=== PATIENT | female | born 1995 | race Two or more races ===

== ENCOUNTER 2020-06-17 19:03 | Emergency (ER) | payer BC ==
--- NOTE | 2020-06-17 19:43 | EDM.PDOC ---
ED HPI GENERAL MEDICAL PROBLEM - General Chief Complaint: Back Pain or Injury Stated Complaint: BACK PAIN Time Seen by Provider: 06/17/20 19:32 Source of Information: Reports: Patient, RN Notes Reviewed History Limitations: Reports: No Limitations - History of Present Illness INITIAL COMMENTS - FREE TEXT/NARRATIVE: Patient is a 24-year-old female who presents to the ED for her back pain. Patient notes that this started Tuesday, it got better last few days however worsened again this morning. She did take 400 mg ibuprofen this a.m. for pain management and this helped a little bit but did not really take the pain away. 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 She denies any numbness or tingling into her toes or radiation to her leg. She notes that this is in her left lower lumbar area. She denies any trauma, near slips trips or falls. She has not had pain like this before ever. She notes that the pain is constant, seems to worsen with flexing type movements, and gets better when she is not laying on the affected side and just not moving at all. She denies any loss of bowel or bladder control or saddle anesthesia components. She denies any fevers or chills, cough shortness of breath, nausea/vomiting/diarrhea. Patient notes that the pain is very sharp and stabbing in nature. She further denies any dysuria, frequency or urgency. Lower Back Pain Score (Numeric/FACES): 9 - Related Data Allergies Allergy/AdvReac Type Severity Reaction Status Date / Time No Known Allergies Allergy Verified 06/17/20 19:35 Home Meds: Home Meds Acetaminophen/HYDROcodone [[place] 325-5 MG] 1 tab PO Q6H PRN #6 tablet 06/17/20 [Rx] Naproxen [Naprosyn] 500 mg PO Q12HR #20 tab 06/17/20 [Rx] Orphenadrine [Norflex] 100 mg PO BID PRN #20 tab 06/17/20 [Rx] ED ROS GENERAL - Review of Systems Review Of Systems: Comprehensive ROS is negative, except as noted in HPI. ED EXAM,LOWER BACK PAIN/INJURY - Physical Exam Exam: See Below Exam Limited By: No Limitations General Appearance: Alert, WD/WN, No Apparent Distress Respiratory/Chest: No Respiratory Distress, Lungs Clear, Normal Breath Sounds, No Accessory Muscle Use, Chest Non-Tender Cardiovascular: Normal Peripheral Pulses, Regular Rate, Rhythm, No Edema Back Exam: Normal Inspection, Decreased Range of Motion (d/t pain in left lower back) Extremities: Normal Inspection, Normal Capillary Refill Neurological: Alert, Normal Mood/Affect, Normal Dorsiflexion, Normal Plantar Flexion, Normal Reflexes, No Motor/Sensory Deficits. No: Straight Leg Raise (L), Straight Leg Raise (R), Saddle Anesthesia Psychiatric: Normal Affect, Normal Mood Skin Exam: Warm, Dry, Intact, Normal Color, No Rash Course - Vital Signs Last Recorded V/S: Last Vital Signs Temp 98.6 F 06/17/20 19:29 Pulse 91 06/17/20 19:29 Resp 20 06/17/20 19:29 BP 127/71 06/17/20 19:29 Pulse Ox 99 06/17/20 19:29 - Orders/Labs/Meds Meds: Medications Discontinued Medications Generic Name Dose Route Start Last Admin Trade Name Ann-Marie PRN Reason Stop Dose Admin Ketorolac Tromethamine 60 mg 06/17/20 19:39 06/17/20 19:45 Ketorolac 60 Mg/2 Ml Sdv IM 06/17/20 19:40 60 mg ONETIME ONE Administration Orphenadrine Citrate 100 mg 06/17/20 19:39 06/17/20 19:45 Orphenadrine 100 Mg Tab.Er PO 06/17/20 19:40 100 mg ONETIME ONE Administration - Re-Assessments/Exams Free Text/Narrative Re-Assessment/Exam: 06/17/20 19:42 Patient presents to the ED for her lower back pain, we will go ahead and try an IM injection of Toradol and try 100 mg p.o. Norflex for initial management. Highly suspect musculoskeletal etiology. 06/17/20 20:18 I was back in to reassess the patient, she states that her pain went from a 10 out of 10 to a 6 out of 10. She does state that she lives in [facility], and was wondering about the possibility of an x-ray to make sure nothing was wrong. I did explain to her that the likelihood of some sort of fracture or other bony abnormality is very low, we will not see any sort of major muscle or soft tissue injury on x-ray, nonetheless she is requesting an x-ray to be performed we will go ahead and order lumbar x-rays for evaluation. Plan is to send her home with some Naprosyn and Norflex, and just a few tablets of [place] for nighttime pain management if the Naprosyn does not work. 06/17/20 20:40 Lumbar spine films have been performed, and demonstrate no focal abnormalities, reviewed by myself and Dr. Amaro. Official radiology read is still pending. 06/17/20 20:53 Official x-ray read demonstrates no abnormality appreciated on the three-view lumbar spine study. I will give the patient 0.5 mg IM injection of Dilaudid for pain management for tonight's purposes as she has to go home to kill there. She notes that she has a ride. Departure - Departure Time of Disposition: 20:54 Disposition: Home, Self-Care 01 Condition: Good Clinical Impression: Low back pain Qualifiers: Chronicity: acute Back pain laterality: left Sciatica presence: without sciatica Qualified Code(s): M54.5 - Low back pain - Discharge Information *PRESCRIPTION DRUG MONITORING PROGRAM REVIEWED*: Yes *COPY OF PRESCRIPTION DRUG MONITORING REPORT IN PATIENT MICHAEL: No Prescriptions: Naproxen [Naprosyn] 500 mg PO Q12HR #20 tab Acetaminophen/HYDROcodone [[place] 325-5 MG] 1 tab PO Q6H PRN #6 tablet PRN Reason: Pain Orphenadrine [Norflex] 100 mg PO BID PRN #20 tab PRN Reason: Spasms Instructions: Back Injury Prevention, [id number], Muscle Strain, [id number] Referrals: PCP,None [Primary Care Provider] - Forms: ED Department Discharge, ED Return to Work/School Form Additional Instructions: You have been evaluated in the ED for your left lower back pain. Your x-ray demonstrated no acute fractures or other bony abnormalities. Please use ice/heat as tolerated to the affected area. You were given 3 different medications, one will be Naprosyn and anti- inflammatory only take 1 tablet 2 times a day for pain management. One medication is Norflex, a muscle relaxer, you will need to take 1 tablet 2 times a day as needed for further muscle spasms. The third medication is hydrocodone/acetaminophen 5/325 mg. This is to be taken if the Naprosyn is not working, for pain management at night, these medicines can be addictive, so please take as few of these as possible to obtain appropriate pain management. Do not drive while taking the hydrocodone and Norflex. The hydrocodone med ication can be somewhat constipating, if you need to take this medication I highly recommend you start taking a stool softener like MiraLAX, Dulcolax, Colace to help keep your bowels regular. Please return to ED if your symptoms should change or worsen. Sepsis Event Note (ED) - Evaluation Sepsis Screening Result: No Definite Risk - Focused Exam Vital Signs: Vital Signs Temp Pulse Resp BP Pulse Ox 06/17/20 19:29 98.6 F 91 20 127/71 99
[2020-06-17] MEDS: Ketorolac 60 MG/2 ML SDV IM ONE (19:45)
[2020-06-17] MEDS: Orphenadrine 100 MG Tab.ER PO ONE (19:45)
--- NOTE | 2020-06-17 20:47 | CR ---
Lumbar spine: AP, lateral and coned-down lateral view centered to the lumbosacral junction were obtained. Comparison: No prior lumbar spine imaging is available. Vertebral body heights and disc spaces are maintained. Pedicles as well as the visualized transverse and spinous processes are intact. No subluxation or fracture is appreciated. Sacroiliac joints are unremarkable. Impression: 1. No abnormality is appreciated on 3 view lumbar spine study. Diagnostic code #1
[2020-06-17] MEDS: HYDROmorphone 0.5 MG/0.5 ML Syringe IM ONE (21:13)
== END 2020-06-17 21:16 | disposition home or self-care (01) ==
LOC: JD.ED 19:03
DX: M54.5 Low back pain (principal)
CPT/HCPCS: 72100; 96372; 99283; A9270; J1170; J1885

== ENCOUNTER 2020-11-30 13:10 | Emergency (ER) | payer BC ==
[2020-11-30] MEDS ORDERED: Sodium Chloride 0.9% 10 ML Syringe FLUSH PRN (13:46)
[2020-11-30] MEDS ORDERED: cefTRIAXone 2 GM in Sodium Chloride 0.9% 100 ML IV ONE (13:46)
[2020-11-30] MEDS ORDERED: HYDROmorphone 1 MG/ML Syringe IVPUSH ONE (13:58)
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
[2020-11-30] MEDS ORDERED: Ondansetron 4 MG/2 ML SDV IVPUSH ONE (14:44)
--- NOTE | 2020-11-30 14:59 | CR ---
Left hand: 3 views portable left hand were obtained. Comparison: No prior hand study is available. No radiopaque foreign object is seen within the soft tissues. No soft tissue air is seen. No acute fracture, dislocation or other bony abnormality is appreciated. Impression: 1. Nothing acute is seen on 3 view left hand exam. Diagnostic code #1
== END 2020-11-30 15:40 | disposition home or self-care (01) ==
LOC: JD.ED 13:10
DX: S60.471A Other superficial bite of left index finger, initial encounter (principal); S60.473A Other superficial bite of left middle finger, initial encounter; S60.475A Other superficial bite of left ring finger, initial encounter; L03.012 Cellulitis of left finger; R60.0 Localized edema; Z86.16 Personal history of COVID-19; W50.3XXA Accidental bite by another person, initial encounter
CPT/HCPCS: 73130; 96365; 96375; 99284; J0696; J1170; J2405

== ENCOUNTER 2022-02-01 19:45 | Emergency (ER) | payer SELFPAY ==
[2022-02-01] MEDS ORDERED: Dexamethasone 10 MG/ML SDV IM ONE (22:23)
[2022-02-01] MEDS ORDERED: HYDROmorphone 1 MG/ML Syringe IM ONE (22:23)
== END 2022-02-01 23:15 | disposition home or self-care (01) ==
LOC: JD.ED 19:45
DX: R22.0 Localized swelling, mass and lump, head (principal); Z86.16 Personal history of COVID-19
CPT/HCPCS: 96372; 99283; J1100; J1170

== ENCOUNTER 2024-02-11 02:58 | Emergency (ER) | payer OTHER ==
[2024-02-11] MEDS ORDERED: Sodium Chloride 0.9% 10 ML Syringe FLUSH PRN (03:16)
[2024-02-11 03:23] LABS: APPEARANCE,URINE CLEAR (Clear); BILIRUBIN,URINE NEGATIVE (Negative); COLOR,URINE LIGHT YELLOW (Yellow); GLUCOSE,URINE NEGATIVE (Negative); KETONES,URINE NEGATIVE (Negative); LEUKOCYTE ESTERASE,URINE NEGATIVE (Negative); NITRITE,URINE NEGATIVE (Negative); OCCULT BLOOD,URINE 1+ (Negative); PH,URINE 6.5 (5.0-8.0); PROTEIN,URINE NEGATIVE (Negative); UROBILINOGEN,URINE 0.2 (0.2-1.0)
[2024-02-11 03:41] LABS: BASOPHILS ABSOLUTE AUTO 0.2 K/mm3 (0.0-0.2); BASOPHILS PERCENT AUTO 1.9 % (0.0-1.0); EOSINOPHILS ABSOLUTE AUTO 0.3 K/mm3 (0.0-0.4); EOSINOPHILS PERCENT AUTO 2.6 % (0.0-6.0); HEMATOCRIT 40.9 % (37.0-47.0); HEMOGLOBIN 13.9 gm/dl (12.0-16.0); IMMATURE GRAN ABSOLUTE AUTO 0.03 K/mm3 (0.00-0.05); IMMATURE GRAN PERCENT AUTO 0.2 % (0.0-0.4); LYMPHOCYTES ABSOLUTE AUTO 4.8 K/mm3 (1.0-4.8); LYMPHOCYTES PERCENT AUTO 39.6 % (24.0-44.0); MEAN CORPUSCULAR HEMOGLOBIN 29.9 pg (28.0-32.0); MEAN PLATELET VOLUME 9.8 fl (9.4-12.3); MONOCYTES ABSOLUTE AUTO 0.8 K/mm3 (0.0-0.8); NEUTROPHILS ABSOLUTE AUTO 5.9 K/mm3 (1.8-7.7); NEUTROPHILS PERCENT AUTO 48.7 % (41.0-71.0); PLATELET COUNT,PLT 428 K/mm3 (150-400); RED BLOOD CELL COUNT 4.65 M/mm3 (4.10-5.30); WHITE BLOOD CELL COUNT,WBC 12.05 K/mm3 (3.9-11.3)
[2024-02-11 04:07] LABS: A/G RATIO 0.8 (1-2); ANION GAP 18.3 (5-15); BILIRUBIN TOTAL 0.4 mg/dL (0.2-1.0); CALCIUM 8.9 mg/dL (8.5-10.1); CREATININE 0.6 mg/dL (0.55-1.02); EST CRCL DRUG DOSING (CG) 133.01 mL/min; POTASSIUM,K 3.3 mEq/L (3.5-5.1); PROTEIN TOTAL,TP 9.1 g/dl (6.4-8.2)
[2024-02-11 04:08] LABS: BACTERIA,URINE MODERATE /hpf (FEW); MUCUS,URINE NOT SEEN /hpf (FEW); SQUAMOUS EPITHELIAL CELLS,UR 0-5 /hpf (0-5); WBC,URINE 0-5 /hpf (0-5)
[2024-02-11 04:12] LABS: INR 1.03; PROTHROMBIN TIME 10.9 SECONDS (9.7-12.0)
[2024-02-11] MEDS: Iopamidol 612 MG/ML 100 ML Bottle IVPUSH ONE (04:15)
[2024-02-11 06:23] LABS: BARBITURATE SCREEN,URINE NEGATIVE (CUTOFF=200); BENZODIAZEPINES SCREEN,URINE NEGATIVE (CUTOFF=150); BUPRENORPHINE SCREEN,URINE NEGATIVE (CUTOFF=10); METHADONE SCREEN, URINE NEGATIVE (CUTOFF=200); METHAMPHETAMINES SCREEN, URINE NEGATIVE (CUTOFF=500); OXYCODONE SCREEN,URINE NEGATIVE (CUT0FF=100); THC SCREEN,URINE 20 NG/ML NEGATIVE (CUTOFF=50)
[2024-02-11 06:26] LABS: AMPHETAMINES SCREEN, URINE NEGATIVE (CUTOFF=500)
[2024-02-11] MEDS: Acetaminophen/oxyCODONE 325-5 MG Tab PO ONE (08:01)
== END 2024-02-11 08:18 | disposition home or self-care (01) ==
LOC: JD.ED 02:58
DX: S02.2XXA Fracture of nasal bones, initial encounter for closed fracture (principal); V89.2XXA Person injured in unspecified motor-vehicle accident, traffic, initial encounter
CPT/HCPCS: 12011; 36415; 70450; 70486; 71260; 72125; 72128; 72131; 74177; 80053; 80306; 80307; 81001; 83690; 84484; 84703; 85025; 85610; 85730; 86850; 86900; 86901; 99284; A9270; Q9967